=== PATIENT | male | born 1970 | race Caucasian/White ===

== ENCOUNTER 2018-02-16 16:15 | Emergency (ER) | payer OTHER ==
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
== END 2018-02-16 17:27 | disposition home or self-care (01) ==
LOC: JP.ED 16:15
DX: S10.93XA Contusion of unspecified part of neck, initial encounter (principal); K21.9 Gastro-esophageal reflux disease without esophagitis; Z79.899 Other long term (current) drug therapy; V59.40XA Driver of pick-up truck or van injured in collision with unspecified motor vehicles in traffic accident, initial encounter
CPT/HCPCS: 99284